=== PATIENT | male | born 1990 | race American Indian/Alaskan Native ===

== ENCOUNTER 2020-05-05 19:33 | Emergency (ER) | payer SELFPAY | END 2020-05-05 23:24 | disposition left against medical advice (07) | LOC: ED 19:33 | DX: Z04.1 Encounter for examination and observation following transport accident (principal); Z53.21 Procedure and treatment not carried out due to patient leaving prior to being seen by health care provider ==

== ENCOUNTER 2020-05-06 11:39 | Emergency (ER) | payer SELFPAY ==
[2020-05-06 12:08] VITALS: BP 119/82
== END 2020-05-06 17:00 | disposition left against medical advice (07) ==
LOC: ED 11:39
DX: R10.9 Unspecified abdominal pain (principal); Z53.21 Procedure and treatment not carried out due to patient leaving prior to being seen by health care provider

== ENCOUNTER 2020-05-07 09:41 | Emergency (ER) | payer SELFPAY | END 2020-05-07 11:45 | LOC: ED 09:41 | DX: M54.9 Dorsalgia, unspecified (principal); Z53.21 Procedure and treatment not carried out due to patient leaving prior to being seen by health care provider ==

== ENCOUNTER 2020-05-11 11:08 | Emergency (ER) | payer SELFPAY ==
[2020-05-11 11:28] VITALS: BP 122/79
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
== END 2020-05-11 14:50 | disposition home or self-care (01) ==
LOC: ED 11:08
DX: R51.9 Headache, unspecified (principal)
CPT/HCPCS: 99281